=== PATIENT | female | born 1935 | race Caucasian/White ===

== ENCOUNTER → 2016-08-19 | Outpatient (CLI) | payer MEDICARE ==
[~2016-08-19] MED LIST: AMIT25TA20 PO; ASPI81TA82 PO; CLON-352 PO; FERR325T2 PO; FLUO10TA PO; LACTCAP8 PO; LEVO.1 PO; LEVO150T7 PO; MOBI15TA PO; NIFE30TA61 PO; OMEP20TA PO; OXYB5TAB PO; OXYB5TAB10 PO; PANT40TA3 PO; VITA500T83 PO; otc iron PO
[2016-08-19 13:02] LABS: APTT (PATIENT) 25.4 SEC (24.3-30.1); PROTHROMBIN TIME - PATIENT 10.7 SEC (9.8-11.6)
[2016-08-19 15:05] LABS: BACTERIA, URINE MANY /hpf; BLOOD, URINE NEG (NEG); COMMENT (UR) CULTURE INDICATED; CULTURE IF INDICATED CULTURE INDICATED; GLUCOSE,URINE NEG (NEG); HYALINE CAST, URINE 1 /lpf (RARE); KETONE, URINE 10 mg/dL (NEG); MUCUS URINE FEW /lpf (OCC); NITRITE,URINE NEG (NEG); PH, URINE 5.5 (5.0-8.5); URINE COLOR YELLOW (YELLW/STRAW)
--- NOTE | 2016-08-19 15:43 | RADRPT ---
EXAM DATE/TIME: 08/19/2016 13:44 [facility] COMPARISON: CHEST PA & LAT, February 22, 2011, 11:50. INDICATIONS : Pre-op Right knee replacement. Evaluate for Pneumonia, Pneumothorax, and Communicable Diseases. MEDICAL HISTORY : None. SURGICAL HISTORY : Left total knee. ENCOUNTER: Initial ACUITY: 1 day PAIN SCORE: 0/10 LOCATION: Bilateral chest FINDINGS: The lungs are clear without infiltrate, nodule, or mass. There is no appreciable pleural effusion fo r technique. Heart and mediastinum are unremarkable. CONCLUSION: No acute cardiopulmonary disease. aLshell Mcadams MD on August 19, 2016 at 15:41 Board Certified Radiologist. This report was verified electronically.
== END ==
LOC: CPRE 11:26
PROVIDERS: ATTEND Orthopaedic Surgery
DX: Z01.811 Encounter for preprocedural respiratory examination (principal); Z01.812 Encounter for preprocedural laboratory examination; Z01.810 Encounter for preprocedural cardiovascular examination; M17.11 Unilateral primary osteoarthritis, right knee; M25.50 Pain in unspecified joint; B96.1 Klebsiella pneumoniae [K. pneumoniae] as the cause of diseases classified elsewhere; R82.99 Other abnormal findings in urine
CPT/HCPCS: 36415; 71020; 81001; 85610; 85652; 85730; 87077; 87086; 87186

== ENCOUNTER → 2017-03-31 | Outpatient (CLI) | payer MEDICARE ==
[~2017-03-31] MED LIST changes: -AMIT25TA20 PO; +AMIT25TA9 PO; -ASPI81TA82 PO; +CALC1TAB87 PO; -CLON-352 PO; +CYAN25005 PO; -LEVO.1 PO; +LEVO100T5 PO; -OMEP20TA PO; +OXYB10TA PO; -OXYB5TAB PO; -OXYB5TAB10 PO; +OXYB5TAB8 PO; +VITA500T35 PO; -otc iron PO
== END ==
LOC: CPRE 11:28
PROVIDERS: ATTEND Orthopaedic Surgery
DX: Z01.812 Encounter for preprocedural laboratory examination (principal); Z01.811 Encounter for preprocedural respiratory examination; Z01.810 Encounter for preprocedural cardiovascular examination; M25.50 Pain in unspecified joint; M79.609 Pain in unspecified limb; M17.11 Unilateral primary osteoarthritis, right knee; Z96.60 Presence of unspecified orthopedic joint implant

== ENCOUNTER 2017-04-16 09:02 | Inpatient (IN) | payer MEDICARE ==
[~2017-04-16] VITALS: Ht 152.4 cm; Wt 65.9 kg
[~2017-04-16 09:02] MED LIST changes: -FERR325T2 PO; -FLUO10TA PO; -LEVO150T7 PO; -OXYB5TAB8 PO
[2017-04-16] MEDS ORDERED: SODIUM CHLORID 0.9% 500 ML IV PRN (09:45)
[2017-04-16] MEDS ORDERED: METOPROLOL TARTRATE 25 MG TAB PO PRN (09:45)
[2017-04-16] MEDS ORDERED: CHLORHEXIDINE GLUCONATE 2 % 1 PACK (2 CLOTHS) TOPICAL PRN (09:45)
[2017-04-16] MEDS ORDERED: POVIDONE IODINE 5% (ANTISEPSIS KIT) 4 APPLICATIONS EACH NARE PRN (09:45)
[2017-04-16] MEDS ORDERED: LACTATED RINGER'S 1000 ML IV PRN (09:45)
[2017-04-16] MEDS ORDERED: POVIDONE IODINE 7.5% SCRUB 118 ML BOTTLE TOPICAL SCH (10:00)
[2017-04-16] MEDS ORDERED: DEXAMETHASONE SOD PHOS 20 MG/5 ML VIAL IV SCH (10:00)
[2017-04-16] MEDS ORDERED: VANCOMYCIN 1000 MG/NS 250 ML (for <70 kg) IV SCH ×2 (10:00)
[2017-04-16] MEDS ORDERED: CHLORHEXIDINE GLUCONATE 4% SOLN 120 ML BTL TOPICAL SCH (10:00)
[2017-04-16] MEDS ORDERED: ceFAZolin 2 GM PREMIX 50 ML IV SCH (10:00)
--- NOTE | 2017-04-16 10:12 | EKG ---
Date Performed: 04/16/2017 Time Performed: 09:55:08 PTAGE: 81 years EKG: Sinus rhythm PROBABLE INFERIOR MYOCARDIAL INFARCTION , PROBABLY OLD ABNORMAL ECG PREVIOUS TRACING : 02/22/2011 10.34 DOCTOR: Donovan Mendoza Interpretating Date/Time 04/16/2017 10:11:13
[2017-04-16 10:19] VITALS: PULSE 82
[2017-04-16] MEDS ORDERED: MIDAZOLAM HCL 2 MG/2 ML VIAL ONE ×2 (10:27→14:01)
[2017-04-16] MEDS ORDERED: BUPIVACAINE LIPOSOME PF 1.3% 20 ML VIAL ONE (10:27)
[2017-04-16] MEDS ORDERED: TRANEXAMIC ACID IV SCH (11:00)
[2017-04-16] MEDS ORDERED: ROPIVACAINE PERI-ARTICULAR INJECTION. P-ARTICULR SCH ×5 (11:00)
[2017-04-16] MEDS ORDERED: SODIUM CHLORIDE 0.9% IV SCH (11:00)
[2017-04-16] MEDS ORDERED: GENTAMICIN SULFATE 80 MG/2 ML VIAL ONE (11:14)
[2017-04-16] MEDS ORDERED: FAMOTIDINE 20 MG/2 ML VIAL ONE (11:21)
[2017-04-16] MEDS ORDERED: ACETAMINOPHEN 1000 MG/100 ML 100 ML IV ONE (11:21)
[2017-04-16] MEDS ORDERED: LIDOCAINE HCL 1% PF 5 ML SYRINGE OTHER ONE (12:00)
[2017-04-16] MEDS ORDERED: ePHEDrine/NS 25 MG/5 ML SYRINGE IV ONE (12:00)
[2017-04-16] MEDS ORDERED: PROPOFOL 200 MG/20 ML AMP IV ONE (12:00)
--- NOTE | 2017-04-16 13:20 | PD.OP ---
cc: Rufino Fuentes MD Operative Report Date of Surgery: Apr 16, 2017 Preoperative Diagnosis: Right knee severe osteoarthritis Postoperative Diagnosis: Same Procedure: Right total knee arthroplasty Anesthesia: Spinal and adductor canal block Surgeon: Rufino Fuentes Apprentice Pattern Maker(s): JOHN Samuels The surgical procedure was assisted by my Advanced Registered Nurse Practitioner. My MOUNTER SOUSAPHONES presence was necessary throughout this case for the manipulation and positioning of the surgical extremity. My MOUNTER SOUSAPHONES was assisting me throughout the duration of this procedure. The skill set of an Advance Registered Nurse Practitioner was medically necessary to complete this procedure. During the surgical case, the surgical assistant certified was working at the back table and the Advance Registered Nurse Practitioner was directly assisting me. Operation and Findings: IMPLANTS: DePuy Attune: Patella: size 32. Femur, posterior stabilized size 5. Tibia, rotating platform size 4. Tibial insert, rotating platform, posterior stabilized size 8 mm thickness. ESTIMATED BLOOD LOSS: 150 cc TOURNIQUET TIME: 33 minutes at 250 mmHg pressure. JUSTIFICATION FOR PROCEDURE: The patient has end-stage osteoarthritis to the knee. There is an attached conservative measures pathway form in the chart that describes the nonoperative measures that were undertaken prior to consideration of surgical management. The patient understood the risks and benefits of surgical management. See my office notes for further details PROCEDURE: The patient was brought back to the operative theatre. Adequate anesthesia was obtained. The patient received intravenous vancomycin and Ancef. The lower extremity was prepped and draped in the usual sterile fashion.The leg was exsanguinated, the tourniquet was raised. A standard anterior incision was performed followed by medial parapatellar arthrotomy was performed. End-stage arthritis was identified. Osteotomy of the patella was performed. We drilled holes for the patella. We trialed the patella component. We placed an intramedullary guide into the distal femur. We ultimately resected 13 mm off of the distal femur in 5 degrees of valgus. The remnants of the ACL and PCL were resected. Osteotomy of the proximal tibia was performed, resecting 5 mm off of the medial side. This was done with 3 degrees of posterior slope using an extramedullary guide. The distal end of the guide was placed in the mid aspect of the ankle. The femur was sized, and four chamfer cuts were completed in 3 of external rotation. We then cut the central box in the distal femur to replace the PCL. We resected the remnants of the menisci and removed osteophytes off of the femur and tibia. We then trialed the knee. We punched the tibia for the keel, and then used standard technique to cement in components. Excess cement was removed. We trialed the knee again and the final polyethylene thickness was chosen to provide extension to 0 degrees, and flexion of 140 degrees to gravity. The ligaments were appropriately balanced. Lateral release was necessary to obtain excellent patellofemoral tracking. The tourniquet was released and adequate hemostasis was obtained. An intra- articular injection of a ropivacaine cocktail was injected. The posterior knee was inspected for excess cement, which was removed. The final polyethylene was put into position after thorough irrigation. We then closed deep fascia with a #2 Stratafix followed by skin with 2-0 Vicryl followed by sergio. Postop plan is to weight-bear as tolerated. DVT prophylaxis will be performed with My, CHINEDU kapoor, early mobilization, and Lovenox followed by aspirin. Rufino Fuentes MD Apr 16, 2017 13:20
[2017-04-16] MEDS ORDERED: NALOXONE HCL 0.4 MG/ML AMP IV PUSH PRN (13:30)
[2017-04-16] MEDS ORDERED: Post-op Orders (for Pharmacy) XX ONE (13:30)
[2017-04-16] MEDS ORDERED: BISACODYL 10 MG SUPP RECTAL PRN (13:30)
[2017-04-16] MEDS ORDERED: ALUMINUM/MAGNESIUM/SIMETH 30 ML CUP PO PRN (13:30)
[2017-04-16] MEDS ORDERED: ONDANSETRON HCL 4 MG/2 ML VIAL IVP PRN (13:30)
[2017-04-16] MEDS ORDERED: diphenhydrAMINE HCL 50 MG/ML VIAL IV PUSH PRN (13:30)
[2017-04-16] MEDS ORDERED: MAGNESIUM HYDROXIDE SUSP 30 ML CUP PO PRN (13:30)
[2017-04-16] MEDS ORDERED: MORPHINE SULFATE 4 MG/ML INJ IV PUSH PRN (13:30)
[2017-04-16] MEDS ORDERED: DO NOT ADM ANY ANTICOAGULANT DRUGS PRN (13:51)
[2017-04-16] MEDS: SODIUM CHLOR 0.9% 1000 ML INJ 1,000 ML IV SCH (14:10)
[2017-04-16] MEDS ORDERED: *MEPERIDINE 25 MG INJ VIAL PERIprocedural Use ONLY ONE (14:22)
--- NOTE | 2017-04-16 14:40 | PD.CONS ---
HPI Service [facility] Hospitalists Consult Requested By Dr. Rufino Fuentes Reason for Consult Medical Management Primary Care Physician Dr. Joe Nobles Diagnoses: History of Present Illness Ms. Berkowitz is a pleasant 81 y/o female with HTN, hypothyroidism, GERD, and osteoarthritis. Pt was admitted to [facility] on 04/16/17 for right total knee arthroplasty with Dr. Fuentes. [facility] Hospitalist team was consulted to help with medical management. Pt is seen post-operatively in the PACU and is without complaints. She denies any chest pain, SOB, palpitations, nausea/vomiting or abdominal pain. Review of Systems Constitutional: DENIES: Fever, Chills Ears, nose, mouth, throat: DENIES: Throat pain Respiratory: DENIES: Cough, Shortness of breath Cardiovascular: DENIES: Chest pain, Palpitations Gastrointestinal: DENIES: Abdominal pain, Nausea, Vomiting Genitourinary: DENIES: Hematuria Musculoskeletal: COMPLAINS OF: Joint pain Integumentary: DENIES: Rash Neurologic: DENIES: Headache Psychiatric: DENIES: Confusion Past Family Social History Past Medical History HTN GERD Anxiety Hypothyroidism Osteoarthritis Osteopenia Obesity Anxiety Past Surgical History Appendectomy Cholecystectomy Left hip surgery Hysterectomy Left total knee arthroplasty ORIF left ankle trimalleolar fracture Reported Medications -Amitriptyline 25 Mg PO HS -Oxybutynin ER 24 HR 10 Mg PO BID -Levothyroxine 100 Mcg PO DAILY -Pantoprazole 40 Mg PO DAILY -Nifedipine ER 24 HR 30 Mg PO DAILY -Mobic 15 Mg PO DAILY PRN Calcium 600 with Vitamin D (Calcium Carbonate-Cholecalciferol) 600-400 mg-Unit Tab 1 Tab PO DAILY Vitamin B12 (Cyanocobalamin (Vitamin B-12)) 2,500 Mcg Tab.chew 5,000 Mcg PO DAILY Probiotic (Lactobacillus Acidophilus) 1 Cap Cap 1 Cap PO DAILY Vitamin C ER (Ascorbic Acid) 500 Mg Romario 500 Mg PO DAILY Allergies: Coded Allergies: codeine (Unverified Allergy, Unknown, NAUSEA AND VOMITING, 04/16/17) Family History Noncontributory Social History (+)Alcohol use, 1-2 glasses of wine per day Denies any tobacco use Pt is retired and lives independently Pt is originally from [place]. Physical Exam Vital Signs Vital Signs Date Time Temp Pulse Resp B/P (MAP) Pulse Ox O2 Delivery O2 Flow Rate FiO2 04/16/17 10:19 97 Nasal Cannula 2 04/16/17 10:19 82 04/16/17 09:57 98.8 86 20 153/72 (99) 98 Physical Exam GENERAL: This is a well-nourished, well-developed patient, in no apparent distress. HEENT: Atraumatic. Normocephalic. No temporal or scalp tenderness. No scleral icterus. Airway patent. NECK: Trachea midline, supple, nontender. CARDIO: Regular. RESP: CTA bilaterally. No wheezes, rales, or rhonchi. ABD: +BS, soft, non-tender, nondistended. No hepato-splenomegaly, or palpable masses. No guarding. EXT: Right LE bandages are c/d/i NEURO: Awake and alert. Motor and sensory grossly within normal limits. Normal speech. Assessment and Plan Problem List: (1) Osteoarthritis ICD Codes: M19.90 - Unspecified osteoarthritis, unspecified site Status: Chronic Plan: - s/p right total knee arthroplasty on 04/16/[address] Fuentes - Post-op pain control per Ortho - IS - PT daily - Constipation precautions - DVT prophylaxis, Lovenox ordered per Ortho (2) S/P total knee arthroplasty ICD Codes: Z96.659 - Presence of unspecified artificial knee joint Status: Chronic (3) HTN (hypertension) ICD Codes: I10 - Essential (primary) hypertension Status: Chronic Plan: - Home meds continued - Monitor (4) Hypothyroidism ICD Codes: E03.9 - Hypothyroidism, unspecified Status: Chronic Plan: - Home meds continued (5) GERD (gastroesophageal reflux disease) ICD Codes: K21.9 - Gastro-esophageal reflux disease without esophagitis Status: Chronic Plan: - PPI Problem Qualifiers (1) Osteoarthritis: Qualified Codes: M17.11 - Unilateral primary osteoarthritis, right knee (2) S/P total knee arthroplasty: Qualified Codes: Z96.651 - Presence of right artificial knee joint (3) GERD (gastroesophageal reflux disease): Qualified Codes: K21.9 - Gastro-esophageal reflux disease without esophagitis Eusebia Vo Apr 16, 2017 14:40
--- NOTE | 2017-04-16 14:47 | RADRPT ---
EXAM DATE/TIME: 04/16/2017 13:49 [facility] COMPARISON: CHEST PA & LAT, August 19, 2016, 13:44. INDICATIONS : Post-op total right knee replacement. MEDICAL HISTORY : SURGICAL HISTORY : Total knee replacement, left. ENCOUNTER: Initial ACUITY: 1 day PAIN SCORE: Non-responsive. LOCATION: Right knee FINDINGS: The patient is post right knee arthroplasty. Orthopedic hardware appears in satisfactory position. Th ere is the expected gas within the subcutaneous soft tissues. CONCLUSION: 1. Orthopedic hardware 2. Position. Ras Worthington MD on April 16, 2017 at 14:45 Board Certified Radiologist. This report was verified electronically.
[2017-04-16] MEDS ORDERED: TRANEXAMIC ACID INJ 659 MG in SODIUM CHLORIDE 0.9% INJ 100 ML IV SCH (15:00)
[2017-04-16] MEDS: TOLTERODINE TARTRATE 4 MG CAP LA PO SCH (16:00)
[2017-04-16] MEDS ORDERED: *morphine SULFATE 10 MG/ML PERIprocedure ONLY ONE (16:07)
--- NOTE | 2017-04-16 17:08 | HHI.DCPOC ---
Discharge Care Plan Diagnosis: (1) Primary localized osteoarthrosis, lower leg (2) Status post total knee replacement, right Your Health Problems Are: Difficulty with ADL Goals to Promote Your Health * To prevent worsening of your condition and complications * To maintain your health at the optimal level Directions to Meet Your Goals Take your medications as prescribed Follow your dietary instruction Follow activity as directed Keep your appointments as scheduled Take your immunizations and boosters as scheduled If your symptoms worsen call your PCP, if no PCP go to Urgent Care Center or Emergency Room Smoking is Dangerous to Your Health. Avoid second hand smoke Call the 24-hour hour crisis hotline for domestic abuse at Ras Chairez Apr 16, 2017 17:08
--- NOTE | 2017-04-16 17:09 | HHI.FF ---
Face to Face Verification Diagnosis: (1) Primary localized osteoarthrosis, lower leg (2) Status post total knee replacement, right Physical Therapy Gait training, Transfer training, bed to chair Knee: Total knee Right LE Weight Bearing: WB as tolerated Right LE Range of Motion: Active ROM Nursing Nursing: Celestina reyez Dressing Changes: Do not change dressing Additional Instructions First dressing change in the office I have seen patient Reyna Berkowitz on 04/16/17. My clinical findings support the need for the requested home health care services because: Limited ability to care for self High risk of falls I certify that my clinical findings support that this patient is homebound because: Post-op weakness Unsteady gait/balance Ras Chairez Apr 16, 2017 17:09
[2017-04-16] MEDS ORDERED: CPMMACHINE (17:10)
[2017-04-16] MEDS ORDERED: COMMODE 3-IN-11 MIS (17:10)
[2017-04-16] MEDS ORDERED: WALKER WHEELS/F1 MIS (17:10)
[2017-04-16 20:00] VITALS: BP 133/58; PULSE 90; RESP 16; TEMP 96.4; O2SAT 96
[2017-04-16] MEDS: ACETAMINOPHEN/HYDROcodone 325 MG/5 MG TAB PO PRN (20:45)
[2017-04-16] MEDS ORDERED: ZOLPIDEM TARTRATE 5 MG TAB PO PRN (21:00)
[2017-04-16] MEDS ORDERED: AMITRIPTYLINE HCL 25 MG TAB PO SCH (21:00)
[2017-04-17] VITALS: BP 131/63; PULSE 72; RESP 16; TEMP 96; O2SAT 95
[2017-04-17] MEDS: SODIUM CHLOR 0.9% 1000 ML INJ 1,000 ML IV SCH ×2 (00:15→09:45)
[2017-04-17] MEDS: ACETAMINOPHEN/HYDROcodone 325 MG/5 MG TAB PO PRN ×3 (05:36→15:27)
[2017-04-17] MEDS ORDERED: LEVOTHYROXINE SODIUM 100 MCG TAB PO SCH (06:00)
[2017-04-17] MEDS ORDERED: DEXAMETHASONE SOD PHOS 20 MG/5 ML VIAL IV ONE (07:45)
[2017-04-17] MEDS: TOLTERODINE TARTRATE 4 MG CAP LA PO SCH (07:53)
[2017-04-17 08:00] VITALS: BP 144/66; PULSE 65; RESP 18; TEMP 96.5; O2SAT 95
[2017-04-17 08:16] LABS: HEMATOCRIT 32.1 % (35.0-46.0); HEMOGLOBIN 11.3 GM/DL (11.6-15.3); MEAN CELL VOLUME 92.8 FL (80.0-100.0); MEAN CORPUSCULAR HEMOGLOBIN 32.5 PG (27.0-34.0); MEAN PLATELET VOLUME 8.5 FL (7.0-11.0); PLATELET COUNT 195 TH/MM3 (150-450); RED BLOOD COUNT 3.46 MIL/MM3 (4.00-5.30); RED CELL DISTRIBUTION WIDTH 12.5 % (11.6-17.2)
[2017-04-17] MEDS ORDERED: NIFEdipine 30 MG SUSTAINED RELEASE TAB PO SCH (09:00)
[2017-04-17] MEDS ORDERED: PANTOPRAZOLE SOD 40 MG DELAYED RELEASE TAB PO SCH (09:00)
[2017-04-17 12:00] VITALS: BP 141/67; PULSE 70; RESP 18; TEMP 96.8; O2SAT 96
--- NOTE | 2017-04-17 12:35 | PD.ORT.PN ---
Subjective Post Op Day #: 1 Subjective Remarks Patient is resting in bed using CPM. Patient notes mild pain. Patient states she is ready to be discharged home with home health. Objective Vitals Vital Signs Date Time Temp Pulse Resp B/P (MAP) Pulse Ox O2 Delivery O2 Flow Rate FiO2 04/17/17 08:00 96.5 65 18 144/66 (92) 95 04/17/17 00:00 96.0 72 16 131/63 (85) 95 04/16/17 20:00 96.4 90 16 133/58 (83) 96 04/16/17 19:00 90 12 139/62 (87) 95 Room Air 04/16/17 18:00 91 22 126/60 (82) 97 Room Air 04/16/17 17:00 89 14 136/65 (88) 97 Room Air 04/16/17 16:00 98.0 86 16 128/63 (84) 98 Nasal Cannula 3 04/16/17 15:00 85 12 123/59 (80) 100 Nasal Cannula 3 04/16/17 14:30 80 12 115/59 (77) 100 Nasal Cannula 3 04/16/17 14:15 79 18 117/57 (77) 99 Nasal Cannula 3 04/16/17 14:00 80 13 116/59 (78) 97 Nasal Cannula 3 04/16/17 13:45 97.3 105/56 (72) Nasal Cannula 3 I/O 04/16/17 04/16/17 04/16/17 04/17/17 04/17/17 04/17/17 07:00 15:00 23:00 07:00 15:00 23:00 Intake Total 1300 ml 200 ml Output Total 150 ml Balance 1150 ml 200 ml Intake Oral 200 ml Other 1300 ml Output Estimated Blood Loss 150 ml # Voids 1 2 Result Diagram: 04/17/17 0646 Imaging Last 24 hours Impressions Knee X-Ray 04/16/17 1317 Signed Impressions: Service Date/Time: Sunday, April 16, 2017 13:49 - CONCLUSION: 1. Orthopedic hardware 2. Position. Ras Worthington MD Procedures Right TKA Objective Remarks Dressing is C/D/I. EHL/EHL/TA. 2+ pedal pulse. Calf is soft and nontender. + SILT. Assessment & Plan Ortho Post Op Day #: 1 Problem List: Assessment and Plan POD #1: Right TKA 1. WBAT RLE 2. Lovenox followed by ASA for DVT prophylaxis 3. Ice to the right knee PRN 4. Stable for discharge home with home health today. 5. F/U in the office with Dr. Fuentes or JOHN Minaya as previously scheduled. Ras Chairez Apr 17, 2017 12:35
[2017-04-17] MEDS ORDERED: ENOXAPARIN SODIUM 40 MG/0.4 ML SYRINGE SQ SCH (13:00)
[2017-04-17] MEDS ORDERED: MULTIVITAMINS/MINERALS THERAPEUTIC TAB PO SCH (21:00)
[2017-04-17] MEDS ORDERED: DOCUSATE SODIUM 100 MG CAP PO SCH (21:00)
== END 2017-04-17 17:19 | disposition home health service (06) | DRG 470 ==
LOC: HSDC 09:02 → HSDI 13:18 → N06A 19:38
PROVIDERS: ADMIT Orthopaedic Surgery; ATTEND Orthopaedic Surgery
PROC: 3E0T3BZ Introduction of Anesthetic Agent into Peripheral Nerves and Plexi, Percutaneous Approach (ICD-10-PCS; 2017-04-16)
PROC: 0SRC0J9 Replacement of Right Knee Joint with Synthetic Substitute, Cemented, Open Approach (ICD-10-PCS; principal; 2017-04-16 11:33)
DX: M17.11 Unilateral primary osteoarthritis, right knee (principal); I10 Essential (primary) hypertension; E03.9 Hypothyroidism, unspecified; K21.9 Gastro-esophageal reflux disease without esophagitis; M85.80 Other specified disorders of bone density and structure, unspecified site; Z90.710 Acquired absence of both cervix and uterus; Z96.652 Presence of left artificial knee joint
CPT/HCPCS: 73560; 85027; 86850; 86900; 86901; 87015; 87070; 87102; 87116; 87205; 87206; 93005; 94150; C1776; C9290; J0131; J0690; J0735; J1100; J1580; J1650; J1885; J2175; J2250; J2270; J2795; J3370; J7030; J7050; J7120; L1830